=== PATIENT | female | born 1955 | race Caucasian/White ===

== ENCOUNTER 2021-01-16 14:22 | Emergency (ER) | payer MEDICARE ==
[~2021-01-16 14:22] MED LIST: ACCUPRIL 5MG TAB5 MG PO; ASPIRIN EC325 MG PO; GLUCOTROL XL5 MG PO; LEVAQUIN750 MG PO; LIPITOR20 M1 PO; METFORMIN HCL500 MG PO; NORCO 5-325 TA1 EACH PO; TOPROL XL 50 MG50 MG PO; VENTOLIN (2.5 MG/3 M INH; VENTOLIN HFA IN18 GM INH; VITAMIN B-121000 MC1 PO; WOMEN'S DAILY1 EAC4 PO
[2021-01-16 16:27] LABS: BASOPHIL 0.3 % (0-2); EOSINOPHIL 1.9 % (0-7); HCT 36.8 % (37.0-47.0); LYMPHOCYTE 12.7 % (15-48); MCH 30.7 pg (25.0-31.0); MCHC 32.6 g/dL (32.0-36.0); MCV 94.1 fL (78.0-100.0); MONOCYTE 6.2 % (0-12); NEUTROPHIL 78.4 % (41-80); NRBC 0; PLT 228 K/uL (150-400); RBC 3.91 M/uL (4.20-5.40); RDW 14.6 % (11.5-14.0); WBC 12.9 K/uL (4.0-10.5)
[2021-01-16 16:46] LABS: BUN/CREAT RATIO (CALC) 14.8 RATIO; CREATININE 1.35 mg/dL (0.51-0.95); POTASSIUM 3.9 mmol/L (3.5-5.1)
[2021-01-16 18:47] LABS: BILIRUBIN NEGATIVE (NEGATIVE); BLOOD NEGATIVE Ery/uL (NEGATIVE); CLARITY CLEAR (CLEAR); COLOR YELLOW (YELLOW); GLUCOSE (U) 3+ mg/dL (NORMAL); LEUKOCYTES NEGATIVE Leu/uL (NEGATIVE); NITRITE NEGATIVE (NEGATIVE); PROTEIN TRACE (LOW) mg/dL (NEGATIVE); SPECIFIC GRAVITY 1.015 (1.001-1.030); UROBILINOGEN 0.2 mg/dL (0.2-1.0); pH 5.5 (5.0-9.0)
[2021-01-16 18:52] LABS: SQUAMOUS EPITHELIAL CELLS RARE
[2021-01-16 19:18] LABS: CORONAVIRUS 2019 SARS-COV-2 NEGATIVE (NEGATIVE); INFLUENZA A NAA NEGATIVE (NEGATIVE)
[2021-01-16] MEDS ORDERED: VENTOLIN HFA IN18 GM INH (20:06)
[2021-01-16] MEDS ORDERED: ZPAK PO (20:06)
== END 2021-01-16 20:24 | disposition home or self-care (01) ==
LOC: FER 14:22
PROVIDERS: Nurse Practitioner Family
DX: J06.9 Acute upper respiratory infection, unspecified (principal); J44.9 Chronic obstructive pulmonary disease, unspecified; I25.2 Old myocardial infarction; E11.9 Type 2 diabetes mellitus without complications; E78.5 Hyperlipidemia, unspecified; Z91.040 Latex allergy status; Z95.5 Presence of coronary angioplasty implant and graft; Z79.84 Long term (current) use of oral hypoglycemic drugs; Z79.899 Other long term (current) drug therapy; Z20.822 Contact with and (suspected) exposure to COVID-19
CPT/HCPCS: 36415; 71045; 80048; 81001; 85025; U0002